=== PATIENT | male | born 1970 | race Caucasian/White ===

== ENCOUNTER → 2019-04-07 09:34 | Outpatient (CLI) | payer OTHER, SELFPAY ==
--- NOTE | ~2019-04-07 | XR_ITS ---
EXAMINATION: XR foot LT standing 2V EXAM DATE: 04/07/2019 10:08 INDICATION: Polyneuropathy. TECHNIQUE: Frontal and lateral projections left foot. Comparison is made to prior examination from . FINDINGS: There are no bony erosions identified. Joint spaces are uniform. There are no acute fractu res or dislocations identified. There is no subcutaneous gas. The soft tissue is unremarkable. Th ere are no radiopaque foreign bodies. IMPRESSION: 1. Unremarkable XR foot LT standing 2V exam. Reviewed, dictated and finalized at location B. [employer]
== END ==
PROVIDERS: PCP Internal Medicine; Visit Provider Internal Medicine
DX: M79.672 Pain in left foot (principal); G62.1 Alcoholic polyneuropathy
CPT/HCPCS: 73620

== ENCOUNTER 2020-06-06 11:28 | Outpatient (CLI) | payer OTHER, SELFPAY | END 2020-06-06 11:29 | disposition home or self-care (01) | LOC: ANHCOVIDVC 11:28 | PROVIDERS: PCP Internal Medicine | DX: Z23 Encounter for immunization (principal) | CPT/HCPCS: 0001A; 91300 ==

== ENCOUNTER 2020-06-27 11:19 | Outpatient (CLI) | payer OTHER, SELFPAY | END 2020-06-27 11:20 | LOC: ANHCOVIDVC 11:19 | PROVIDERS: PCP Internal Medicine | DX: Z23 Encounter for immunization (principal) | CPT/HCPCS: 0002A; 91300 ==